=== PATIENT | female | born 1970 | race Caucasian/White ===

== ENCOUNTER → 2016-08-25 | Outpatient (CLI) | payer OTHER ==
[~2016-08-25] MED LIST: ATEN-100 PO; CLON1 PO; FLON0.053; FOLI200T PO; METH2.5 PO
[2016-08-25 11:35] LABS: FREE T4 1.04 NG/DL (0.76-1.46)
== END ==
LOC: CLAB 10:27
PROVIDERS: ATTEND Family Medicine
DX: E03.9 Hypothyroidism, unspecified (principal)
CPT/HCPCS: 36415; 84439; 84443

== ENCOUNTER → 2016-12-03 | Outpatient (CLI) | payer OTHER ==
[2016-12-03 09:42] LABS: BLOOD, URINE NEG (NEG); GLUCOSE,URINE NEG (NEG); KETONE, URINE NEG (NEG); NITRITE,URINE NEG (NEG); SQUAMOUS EPITHELIAL CELL URINE 2 /hpf (0-5); URINE COLOR YELLOW (YELLW/STRAW)
[2016-12-03 09:43] LABS: HEMATOCRIT 36.8 % (35.0-46.0); REVIEW FLAG FINAL
[2016-12-03 10:10] LABS: ALT (GPT) 25 U/L (10-53); ANION GAP 7 MEQ/L (5-15); BICARBONATE 26.9 MEQ/L (21.0-32.0); BLOOD UREA NITROGEN 16 MG/DL (7-18); CHLORIDE 104 MEQ/L (98-107); GLUCOSE,FASTING 83 MG/DL (74-99); POTASSIUM 3.9 MEQ/L (3.5-5.1); SODIUM (NA) 138 MEQ/L (136-145)
[2016-12-03 10:11] LABS: AST (GOT) 22 U/L (15-37); GLOMERULAR FILTRATION RATE 69 ML/MIN (>89)
[2016-12-03 10:13] LABS: ALKALINE PHOSPHATASE 69 U/L (45-117); TOTAL BILIRUBIN ADULT 0.4 MG/DL (0.2-1.0)
[2016-12-03 10:25] LABS: WESTERGREN SEDIMENTATION RATE 20 mm/hr (0-20)
== END ==
LOC: CLAB 09:09
PROVIDERS: ATTEND Internal Medicine Rheumatology
DX: R53.83 Other fatigue (principal); R53.81 Other malaise; N39.0 Urinary tract infection, site not specified; M06.09 Rheumatoid arthritis without rheumatoid factor, multiple sites
CPT/HCPCS: 36415; 80053; 81001; 82306; 85014; 85018; 85652; 86140; 87086

== ENCOUNTER → 2017-04-22 | Outpatient (CLI) | payer OTHER ==
[2017-04-22 08:53] LABS: AUTOMATED NEUTROPHIL # 3.1 TH/MM3 (1.8-7.7); BASOPHIL % 0.5 % (0.0-2.0); EOSINOPHIL # 0.1 TH/MM3 (0-0.4); EOSINOPHIL % 1.3 % (0.0-4.0); HEMATOCRIT 37.3 % (35.0-46.0); HEMO FLAGS DIFF FINAL; LYMPH % 28.1 % (9.0-44.0); LYMPHOCYTE # 1.4 TH/MM3 (1.0-4.8); MEAN CELL VOLUME 94.7 FL (80.0-100.0); MEAN CORPUSCULAR HEMOGLOBIN 31.3 PG (27.0-34.0); MEAN CORPUSCULAR HGB CONC 33.1 % (32.0-36.0); NEUT % 60.1 % (16.0-70.0); PLATELET COUNT 229 TH/MM3 (150-450); RED BLOOD COUNT 3.94 MIL/MM3 (4.00-5.30); RED CELL DISTRIBUTION WIDTH 14.4 % (11.6-17.2); WHITE BLOOD COUNT 5.1 TH/MM3 (4.0-11.0)
[2017-04-22 09:20] LABS: ANION GAP 6 MEQ/L (5-15); AST (GOT) 17 U/L (15-37); BICARBONATE 26.6 MEQ/L (21.0-32.0); BLOOD UREA NITROGEN 18 MG/DL (7-18); CHLORIDE 102 MEQ/L (98-107); GLOMERULAR FILTRATION RATE 64 ML/MIN (>89); GLUCOSE,FASTING 89 MG/DL (74-99); POTASSIUM 4.4 MEQ/L (3.5-5.1); SODIUM (NA) 135 MEQ/L (136-145)
[2017-04-22 09:32] LABS: ALKALINE PHOSPHATASE 70 U/L (45-117); ALT (GPT) 29 U/L (10-53); FREE T4 0.99 NG/DL (0.76-1.46); TOTAL BILIRUBIN ADULT 0.4 MG/DL (0.2-1.0)
== END ==
LOC: CLAB 08:15
PROVIDERS: ATTEND Family Medicine
DX: M06.9 Rheumatoid arthritis, unspecified (principal); E03.9 Hypothyroidism, unspecified; Z00.00 Encounter for general adult medical examination without abnormal findings
CPT/HCPCS: 36415; 80053; 80299; 84439; 84443; 85025

== ENCOUNTER → 2017-05-13 | Outpatient (CLI) | payer OTHER ==
[2017-05-13 10:07] LABS: HEMATOCRIT 34.6 % (35.0-46.0); MEAN CELL VOLUME 94.9 FL (80.0-100.0); MEAN CORPUSCULAR HEMOGLOBIN 31.9 PG (27.0-34.0); MEAN CORPUSCULAR HGB CONC 33.6 % (32.0-36.0); PLATELET COUNT 228 TH/MM3 (150-450); RED BLOOD COUNT 3.65 MIL/MM3 (4.00-5.30); RED CELL DISTRIBUTION WIDTH 14.3 % (11.6-17.2); REVIEW FLAG FINAL; WHITE BLOOD COUNT 6.7 TH/MM3 (4.0-11.0)
[2017-05-13 10:39] LABS: ANION GAP 8 MEQ/L (5-15); AST (GOT) 14 U/L (15-37); BICARBONATE 26.3 MEQ/L (21.0-32.0); BLOOD UREA NITROGEN 12 MG/DL (7-18); CHLORIDE 104 MEQ/L (98-107); GLOMERULAR FILTRATION RATE 69 ML/MIN (>89); GLUCOSE,FASTING 86 MG/DL (74-99); POTASSIUM 3.7 MEQ/L (3.5-5.1); SODIUM (NA) 138 MEQ/L (136-145)
[2017-05-13 10:40] LABS: ALT (GPT) 20 U/L (10-53)
[2017-05-13 10:42] LABS: ALKALINE PHOSPHATASE 57 U/L (45-117); TOTAL BILIRUBIN ADULT 0.4 MG/DL (0.2-1.0)
[2017-05-13 10:57] LABS: WESTERGREN SEDIMENTATION RATE 18 mm/hr (0-20)
== END ==
LOC: CLAB 09:32
PROVIDERS: ATTEND Internal Medicine Rheumatology
DX: M05.79 Rheumatoid arthritis with rheumatoid factor of multiple sites without organ or systems involvement (principal)
CPT/HCPCS: 36415; 80053; 85027; 85652; 86140

== ENCOUNTER 2017-09-25 20:04 | Emergency (ER) | payer OTHER ==
[~2017-09-25] VITALS: Ht 162.6 cm; Wt 62.0 kg
[2017-09-25 20:13] VITALS: BP 146/69; PULSE 82; RESP 18; TEMP 97.5; O2SAT 100
[2017-09-25] MEDS ORDERED: ASPIRIN 325 MG TAB PO ONE (21:15)
[2017-09-25 21:22] VITALS: BP 137/69; PULSE 84; RESP 18; O2SAT 100
--- NOTE | 2017-09-25 21:22 | RADRPT ---
EXAM DATE/TIME: 09/25/2017 20:39 [place] COMPARISON: No previous studies available for comparison. INDICATIONS : Palpitations. MEDICAL HISTORY : None. SURGICAL HISTORY : None. ENCOUNTER: Initial ACUITY: 1 day PAIN SCORE: 0/10 LOCATION: Bilateral chest FINDINGS: PA and lateral views of the chest demonstrate the lungs to be symmetrically aerated without evidence of mass, infiltrate or effusion. The cardiomediastinal contours are unremarkable. Osseous structure s are intact. CONCLUSION: No evidence of acute cardiopulmonary disease. Navarro Matthews MD on September 25, 2017 at 21:20 Board Certified Radiologist. This report was verified electronically.
[2017-09-25] MEDS ORDERED: METH0.35 (21:26)
[2017-09-25] MEDS ORDERED: ATEN25TA PO (21:26)
[2017-09-25] MEDS ORDERED: CLON0.5T PO (21:26)
[2017-09-25] MEDS ORDERED: FLEC1TAB8 PO (21:28)
--- NOTE | 2017-09-25 21:34 | PD ---
HPI Chief Complaint: Cardiac Complaint Time Seen by Provider: 21:05 Travel History International Travel<30 days: No Contact w/Intl Traveler<30days: No Traveled to known affect area: No History of Present Illness HPI 47-year-old female that presents to the ED for evaluation of palpitations. Patient has a history of PSVT per patient she has had to be converted 4 times in the past. Last time was about a year ago in [facility]. Per patient she follows with Dr. Knutson. She states that symptoms started today and comes and goes. Per patient she is currently not having any symptoms but whenever she gets symptoms she gets a chest pressure. She takes medications including a beta-ulices and flecainide. She also has a history of hypothyroidism. She states taking her medications as prescribed. She has not missed a dose. She denies any fevers chills or sweats. No chest pain or shortness of breath at this time. No recent travel. No injury. She does have multiple allergies to different medications. Pain per patient is 2 out of 10. Currently asymptomatic. PFSH Past Medical History Arthritis: Yes (RA) Heart Rhythm Problems: Yes (history of PSVT November 2005) Cancer: No Cardiac Catheterization: No Cardiovascular Problems: Yes High Cholesterol: No Congestive Heart Failure: No Diabetes: No Diminished Hearing: No Glaucoma: No Hepatitis: No Hiatal Hernia: No Hypertension: No Medical other: Yes (ARTHRITIS) Neurologic: Yes (CENTRALIZED TREMORS) Respiratory: No Immunizations Current: Yes Myocardial Infarction: No Thyroid Disease: No Tetanus Vaccination: Unknown Influenza Vaccination: Yes ?: Not LMP: 09/25/2017 : 0 Past Surgical History Coronary Artery Bypass Graft: No Pacemaker: No Social History Alcohol Use: Yes (SOCIALLY) Tobacco Use: No Substance Use: No Allergies-Medications (Allergen,Severity, Reaction): Coded Allergies: Sulfa (Sulfonamide Antibiotics) (Unverified Allergy, Severe, Hives, ) ciprofloxacin (Unverified Allergy, Severe, HIVES, 09/25/17) levofloxacin (Unverified Allergy, Severe, Hives, 09/25/17) diatrizoate meglumine (Unverified Allergy, Intermediate, RED RASH ,ITCH , BLISTER, 09/25/17) gadobenic acid (Unverified Allergy, Intermediate, RED RASH ,ITCH ,BLISTER , 09/25/17) gadodiamide (Unverified Allergy, Intermediate, RED RASH ,ITCH ,BLISTER, ) gadoteridol (Unverified Allergy, Intermediate, RED RASH ,ITCH ,BLISTER, ) iodixanol (Unverified Allergy, Intermediate, RED RASH ,ITCH ,BLISTER, 09/25) iohexol (Unverified Allergy, Intermediate, RED RASH ,ITCH ,BLISTER, ) Reported Meds & Prescriptions Reported Meds & Active Scripts Active Reported Flecainide (Flecainide Acetate) 50 Mg Tab 50 Mg PO BID Rasuvo (Methotrexate (Antirheumatic)) 20 Mg/0.4 Ml Inj Atenolol 25 Mg Tab 25 Mg PO BID Clonazepam 0.5 Mg Tab 0.5 Mg PO BID Review of Systems Except as stated in HPI: all other systems reviewed are Neg Physical Exam Narrative GENERAL: SKIN: Warm and dry. HEAD: Atraumatic. Normocephalic. EYES: Pupils equal and round. No scleral icterus. No injection or drainage. ENT: No nasal bleeding or discharge. Mucous membranes pink and moist. Tongue is midline. No uvula deviation. NECK: Trachea midline. No JVD. CARDIOVASCULAR: Regular rate and rhythm. No murmurs, S3, S4. RESPIRATORY: No accessory muscle use. Clear to auscultation. Breath sounds equal bilaterally. GASTROINTESTINAL: Abdomen soft, non-tender, nondistended. Hepatic and splenic margins not palpable. MUSCULOSKELETAL: Extremities without clubbing, cyanosis, or edema. No obvious deformities. Full range of motion of the upper and lower extremities bilaterally. 2+ pulses bilaterally. NEUROLOGICAL: Awake and alert. No obvious cranial nerve deficits. Motor grossly within normal limits. Five out of 5 muscle strength in the arms and legs. Normal speech. PSYCHIATRIC: Appropriate mood and affect; insight and judgment normal. Data Data Last Documented VS Vital Signs Date Time Temp Pulse Resp B/P (MAP) Pulse Ox O2 Delivery O2 Flow Rate FiO2 09/25/17 23:38 09/25/17 21:22 84 18 100 Room Air 09/25/17 20:13 97.5 Orders Orders Electrocardiogram (09/25/17 20:17) Complete Blood Count With Diff (09/25/17 20:17) Basic Metabolic Panel (Bmp) (09/25/17 20:17) Ckmb (Isoenzyme) Profile (09/25/17 20:17) Troponin I (09/25/17 20:17) Iv Access Insert/Monitor (09/25/17 20:17) Ecg Monitoring (09/25/17 20:17) Oxygen Administration (09/25/17 20:17) Oximetry (09/25/17 20:17) Chest, Pa & Lat (09/25/17 20:17) Thyroid Stimulating Hormone (09/25/17 21:10) Aspirin (Aspirin) (09/25/17 21:15) CKMB (09/25/17 21:51) CKMB% (09/25/17 21:51) Free T3 (09/25/17 23:29) Free Thyroxine (T4) (09/25/17 23:29) Ed Discharge Order (09/25/17 23:29) Labs Laboratory Tests Test 09/25/17 21:51 White Blood Count 5.6 TH/MM3 Red Blood Count 3.80 MIL/MM3 Hemoglobin 12.3 GM/DL Hematocrit 36.6 % Mean Corpuscular Volume 96.4 FL Mean Corpuscular Hemoglobin 32.4 PG Mean Corpuscular Hemoglobin Concent 33.6 % Red Cell Distribution Width 15.5 % Platelet Count 305 TH/MM3 Mean Platelet Volume 8.1 FL Neutrophils (%) (Auto) 51.3 % Lymphocytes (%) (Auto) 39.1 % Monocytes (%) (Auto) 8.9 % Eosinophils (%) (Auto) 0.2 % Basophils (%) (Auto) 0.5 % Neutrophils # (Auto) 2.9 TH/MM3 Lymphocytes # (Auto) 2.2 TH/MM3 Monocytes # (Auto) 0.5 TH/MM3 Eosinophils # (Auto) 0.0 TH/MM3 Basophils # (Auto) 0.0 TH/MM3 CBC Comment DIFF FINAL Differential Comment Blood Urea Nitrogen 6 MG/DL Creatinine 0.77 MG/DL Random Glucose 76 MG/DL Calcium Level 8.5 MG/DL Sodium Level 137 MEQ/L Potassium Level 3.8 MEQ/L Chloride Level 102 MEQ/L Carbon Dioxide Level 26.8 MEQ/L Anion Gap 8 MEQ/L Estimat Glomerular Filtration Rate 80 ML/MIN Total Creatine Kinase 210 U/L Creatine Kinase MB 2.3 NG/ML Creatine Kinase MB % 1.1 % Troponin I LESS THAN 0.02 NG/ML Free Thyroxine 1.42 NG/DL Free Triiodothyronine (T3) pg/dL 3.12 PG/ML Thyroid Stimulating Hormone 3rd Gen 0.019 uIU/ML MDM Medical Decision Making Medical Screen Exam Complete: Yes Emergency Medical Condition: Yes Medical Record Reviewed: Yes Differential Diagnosis Arrhythmia versus tachycardia versus chest pain versus atypical chest pain versus thyroid disease versus normal exam Narrative Course 47-year-old female that presents to the ED for evaluation of possible arrhythmia and chest pain. Patient was properly examined and was found to have signs and symptoms of a clear etiology. Currently patient is sinus rhythm with no sign of acute ischemia or arrhythmia on EKG as well as some fracture. Patient's heart rate is in the 80s at this time and does not appear to be tachycardic. Labs and imaging will be ordered. Patient was given aspirin. Labs and imaging still pending at the writing of this note. Case signed out to my attending Dr Goodwin pending disposition and plan. Jason Hayes Sep 25, 2017 21:34
[2017-09-25 22:19] LABS: AUTOMATED NEUTROPHIL # 2.9 TH/MM3 (1.8-7.7); BASOPHIL % 0.5 % (0.0-2.0); EOSINOPHIL % 0.2 % (0.0-4.0); HEMATOCRIT 36.6 % (35.0-46.0); HEMOGLOBIN 12.3 GM/DL (11.6-15.3); LYMPH % 39.1 % (9.0-44.0); LYMPHOCYTE # 2.2 TH/MM3 (1.0-4.8); MEAN CELL VOLUME 96.4 FL (80.0-100.0); MEAN CORPUSCULAR HEMOGLOBIN 32.4 PG (27.0-34.0); MEAN CORPUSCULAR HGB CONC 33.6 % (32.0-36.0); MEAN PLATELET VOLUME 8.1 FL (7.0-11.0); MONO % 8.9 % (0.0-8.0); MONOCYTE # 0.5 TH/MM3 (0-0.9); NEUT % 51.3 % (16.0-70.0); PLATELET COUNT 305 TH/MM3 (150-450); RED CELL DISTRIBUTION WIDTH 15.5 % (11.6-17.2); WHITE BLOOD COUNT 5.6 TH/MM3 (4.0-11.0)
[2017-09-25 23:00] LABS: BICARBONATE 26.8 MEQ/L (21.0-32.0); BLOOD UREA NITROGEN 6 MG/DL (7-18); CALCIUM 8.5 MG/DL (8.5-10.1); CHLORIDE 102 MEQ/L (98-107); CREATININE 0.77 MG/DL (0.50-1.00); GLOMERULAR FILTRATION RATE 80 ML/MIN (>89); GLUCOSE,RANDOM 76 MG/DL (74-106); SODIUM (NA) 137 MEQ/L (136-145)
[2017-09-25 23:03] LABS: TROPONIN I LESS THAN 0.02 NG/ML (0.02-0.05)
--- NOTE | 2017-09-25 23:29 | PD ---
Physical Exam Date Seen by Provider: Sep 25, 2017 Narrative This patient was originally seen by Pavel Hayes PA-C for SVT. It resolved prior to presentation. Patient reports a history of same. Data Data Last Documented VS Vital Signs Date Time Temp Pulse Resp B/P (MAP) Pulse Ox O2 Delivery O2 Flow Rate FiO2 09/25/17 21:22 84 18 137/69 (91) 100 Room Air 09/25/17 20:13 97.5 Orders Orders Electrocardiogram (09/25/17 20:17) Complete Blood Count With Diff (09/25/17 20:17) Basic Metabolic Panel (Bmp) (09/25/17 20:17) Ckmb (Isoenzyme) Profile (09/25/17 20:17) Troponin I (09/25/17 20:17) Iv Access Insert/Monitor (09/25/17 20:17) Ecg Monitoring (09/25/17 20:17) Oxygen Administration (09/25/17 20:17) Oximetry (09/25/17 20:17) Chest, Pa & Lat (09/25/17 20:17) Thyroid Stimulating Hormone (09/25/17 21:10) Aspirin (Aspirin) (09/25/17 21:15) CKMB (09/25/17 21:51) CKMB% (09/25/17 21:51) Labs Laboratory Tests Test 09/25/17 21:51 White Blood Count 5.6 TH/MM3 Red Blood Count 3.80 MIL/MM3 Hemoglobin 12.3 GM/DL Hematocrit 36.6 % Mean Corpuscular Volume 96.4 FL Mean Corpuscular Hemoglobin 32.4 PG Mean Corpuscular Hemoglobin Concent 33.6 % Red Cell Distribution Width 15.5 % Platelet Count 305 TH/MM3 Mean Platelet Volume 8.1 FL Neutrophils (%) (Auto) 51.3 % Lymphocytes (%) (Auto) 39.1 % Monocytes (%) (Auto) 8.9 % Eosinophils (%) (Auto) 0.2 % Basophils (%) (Auto) 0.5 % Neutrophils # (Auto) 2.9 TH/MM3 Lymphocytes # (Auto) 2.2 TH/MM3 Monocytes # (Auto) 0.5 TH/MM3 Eosinophils # (Auto) 0.0 TH/MM3 Basophils # (Auto) 0.0 TH/MM3 CBC Comment DIFF FINAL Differential Comment Blood Urea Nitrogen 6 MG/DL Creatinine 0.77 MG/DL Random Glucose 76 MG/DL Calcium Level 8.5 MG/DL Sodium Level 137 MEQ/L Potassium Level 3.8 MEQ/L Chloride Level 102 MEQ/L Carbon Dioxide Level 26.8 MEQ/L Anion Gap 8 MEQ/L Estimat Glomerular Filtration Rate 80 ML/MIN Total Creatine Kinase 210 U/L Creatine Kinase MB 2.3 NG/ML Creatine Kinase MB % 1.1 % Troponin I LESS THAN 0.02 NG/ML Thyroid Stimulating Hormone 3rd Gen 0.019 uIU/ML MDM Supervised Visit with NIKOLAS: Yes Narrative Course The patient has been in a sinus rhythm while here. CBC & BMP Diagram 09/25/17 21:51 Calcium Level 8.5 trop < 0.02 TSH 0.019 which is low. Patient reports a history of hypothyroidism and is on thyroid replacement therapy. She states it has been a while since her levels been checked. I will add a T3 and T4 to her labs but will not make her wait on results. She will follow-up with her primary care physician next week to discuss altering her thyroid replacement medication. Diagnosis Primary Impression: SVT (supraventricular tachycardia) Additional Instruction: Check with your doctor next week to discuss your thyroid studies. Disposition: 01 DISCHARGE HOME Condition: Stable Andree Goodwin MD Sep 25, 2017 23:29
[2017-09-26 00:40] LABS: FREE T3 3.12 PG/ML (2.18-3.98); FREE T4 1.42 NG/DL (0.76-1.46)
--- NOTE | 2017-09-26 15:35 | EKG ---
Date Performed: 09/25/2017 Time Performed: 20:32:29 PTAGE: 47 years EKG: Sinus rhythm POSSIBLE RIGHT VENTRICULAR CONDUCTION DELAY BORDERLINE ECG Compared to PREVIOUS TRACING , the patient is no longer tachycardic. PREVIOUS TRACIN04/23/2013 20. 56 DOCTOR: Diana Allen Interpretating Date/Time 09/26/2017 15:33:55
== END 2017-09-25 23:45 | disposition home or self-care (01) ==
LOC: NEPE 20:04
DX: I47.1 Supraventricular tachycardia (principal)
CPT/HCPCS: 71046; 80048; 82550; 82552; 84439; 84443; 84481; 84484; 85025; 93005; 99285